=== PATIENT | female | born 1980 | race Caucasian/White ===

== ENCOUNTER 2016-04-12 04:16 | Emergency (ER) | payer OTHER ==
[~2016-04-12] VITALS: Ht 160 cm; Wt 88.0 kg
[2016-04-12 04:19] VITALS: BP 129/76; PULSE 86; RESP 16; TEMP 97.6; O2SAT 99
[2016-04-12] MEDS ORDERED: AMOX875T PO (04:35)
--- NOTE | 2016-04-12 04:38 | PD ---
HPI Chief Complaint: Cold / Flu Symptoms Time Seen by Provider: 04:28 Travel History International Travel<30 days: No Contact w/Intl Traveler<30days: No Traveled to known affect area: No History of Present Illness HPI 35-year-old female who is currently 18 weeks presents for evaluation. Since yesterday she has had sinus pressure, congestion, sneezing, bilateral ear pressure and a sore throat. She has been using [id number] Tylenol for symptom relief. No fevers, chills, rash, recent travel. Her partner has similar symptoms. She has no other complaints at this time. PFSH Past Medical History Blood Disorders: No Cancer: No Cardiovascular Problems: No Diminished Hearing: No Endocrine: No Gastrointestinal Disorders: No Genitourinary: No Immune Disorder: No Musculoskeletal: No Neurologic: No Psychiatric: No Reproductive: No Respiratory: No Immunizations Current: Yes Tetanus Vaccination: Unknown Influenza Vaccination: Yes ?: LMP: 18 WEEKS Past Surgical History Abdominal Surgery: No AICD: No Arteriovenous Shunt: No Cardiac Surgery: No Ear Surgery: Yes (TUBES A CHILD) Endocrine Surgery: No Eye Surgery: No Gynecologic Surgery: No Insulin Pump: No Joint Replacement: No Neurologic Surgery: No Oral Surgery: Yes (WISDOM TEETH REMOVED) Pacemaker: No Thoracic Surgery: No Social History Alcohol Use: No Tobacco Use: Yes (patient states that she quit for her .) Substance Use: No Allergies-Medications (Allergen,Severity, Reaction): Coded Allergies: No Known Allergies (Verified , 04/12/16) Reported Meds & Prescriptions Reported Meds & Active Scripts Active Amoxicillin 875 Mg Tab 875 Mg PO BID 10 Days Review of Systems Except as stated in HPI: all other systems reviewed are Neg Physical Exam Narrative GENERAL: Well-developed well-nourished female in no acute distress SKIN: Warm and dry. HEAD: Atraumatic. Normocephalic. EYES: Pupils equal and round. No scleral icterus. No injection or drainage. ENT: No nasal bleeding or discharge. Mucous membranes pink and moist. Some discomfort to palpation over the maxillary sinuses. Tympanic membranes clear bilaterally. No oral pharyngeal erythema or exudate. NECK: Trachea midline. No JVD. No lymphadenopathy CARDIOVASCULAR: Regular rate and rhythm. No murmur appreciated. RESPIRATORY: No accessory muscle use. Clear to auscultation. Breath sounds equal bilaterally. Data Data Last Documented VS Vital Signs Date Time Temp Pulse Resp B/P Pulse Ox O2 Delivery O2 Flow Rate FiO2 04/12/16 04:19 97.6 86 16 129/76 99 Orders Loratadine (Claritin) (04/12/16 04:45) MDM Medical Decision Making Medical Screen Exam Complete: Yes Emergency Medical Condition: Yes Medical Record Reviewed: Yes Differential Diagnosis Sinusitis, allergic rhinitis, influenza, otitis media, eustachian tube dysfunction, pharyngitis Narrative Course 35-year-old female who is 18 weeks presents with 2 day history of sinus pressure, ear discomfort, congestion and sneezing. History and examination are consistent with sinusitis, viral versus bacterial. Plan is to treat the patient with [id number] a 20 antihistamines which are category B, the patient will be discharged with a prescription for amoxicillin which is category B. Diagnosis Primary Impression: Sinusitis Qualified Code: J32.9 - Sinusitis, unspecified chronicity, unspecified location Departure Forms: Tests/Procedures, Work Release Enter return to work date: Apr 14, 2016 Additional Instructions: Medication as prescribed. Use [id number] Claritin for sneezing. Stay well hydrated and well-nourished. Follow-up with primary care physician as needed. Med/Other Pt SpecificInfo: Prescription(s) given Scripts Amoxicillin 875 Mg [id number] Mg PO BID 10 Days Ref 0 Prov:Flaquita Arenas MD 04/12/16 Disposition: 01 DISCHARGE HOME Condition: Stable Alessandro Arevalo Apr 12, 2016 04:38
[2016-04-12] MEDS ORDERED: LORATADINE 10 MG TAB PO ONE (04:45)
== END 2016-04-12 04:56 | disposition home or self-care (01) ==
LOC: NEPB 04:16
DX: O26.892 Other specified pregnancy related conditions, second trimester (principal); J32.9 Chronic sinusitis, unspecified; J02.9 Acute pharyngitis, unspecified
CPT/HCPCS: 99283

== ENCOUNTER → 2016-06-22 | Outpatient (CLI) | payer OTHER ==
[~2016-06-22] MED LIST: AMOX875T PO; IBUP-232 PO; OXYC1TAB63 PO
== END ==
LOC: CLAB 09:46
PROVIDERS: ATTEND Obstetrics & Gynecology
DX: Z34.93 Encounter for supervision of normal pregnancy, unspecified, third trimester (principal); Z3A.28 28 weeks gestation of pregnancy; Z67.31 Type AB blood, Rh negative
CPT/HCPCS: 36415; 86850; 86900; 86901; 90384; 96372; J2790

== ENCOUNTER 2016-08-24 22:14 | Emergency (ER) | payer OTHER ==
[~2016-08-24 22:14] MED LIST changes: -IBUP-232 PO; -OXYC1TAB63 PO
[2016-08-24 23:29] LABS: BLOOD, URINE NEG (NEG); COMMENT (UR) CULT NOT INDICATED; CULTURE IF INDICATED CULT NOT INDICATED; GLUCOSE,URINE NEG (NEG); KETONE, URINE NEG (NEG); MUCUS URINE FEW /lpf (OCC); NITRITE,URINE NEG (NEG); SQUAMOUS EPITHELIAL CELL URINE 2 /hpf (0-5); URINE COLOR YELLOW (YELLW/STRAW)
--- NOTE | 2016-08-24 23:31 | PD ---
HPI Chief Complaint swelling Date Seen: August 24, 2016 Travel History International Travel<30 Days: No Contact w/Intl Traveler<30Days: No Known Affected Area: No History of Present Illness HPI This is a 35y/o at 37w3d who presented to the [facility] with reports of increased swelling in her left ankle. Pt recently had bilateral LE dopplers due to concerns of lower extremity edema, per patient studies were negative. She reports some contractions today, about "couple hours" apart. No vaginal bleeding or leakage of fluid with reports of active movements. care with Dr. Saenz, records not available for review, care complicated by: 1. recent edema Para: 0 : 1 History Past Medical History Medical History: Denies Significant Hx Past Surgical History Narrative Surgical [place] teeth extraction as a child Family History Family History: Negative Social History Alcohol Use: No Tobacco Use: No Substance Abuse: No Allergies-Medications (Allergen,Severity, Reaction): Coded Allergies: No Known Allergies (Verified , 04/12/16) Home Meds Active Scripts Amoxicillin 875 Mg [id number] Mg PO BID 10 Days Ref 0 Prov:Flaquita Arenas MD 04/12/16 Review of Systems Except as stated in HPI: all other systems reviewed are Neg Physical Exam Narrative GENERAL: Well-nourished, well-developed patient. SKIN: Warm and dry. HEAD: Normocephalic and atraumatic. EYES: No scleral icterus. No injection or drainage. ENT: No nasal drainage noted. Mucous membranes pink. Airway patent. NECK: Supple, trachea midline. No JVD. CARDIOVASCULAR: Regular rate and rhythm without murmurs, gallops, or rubs. RESPIRATORY: Breath sounds equal bilaterally. No accessory muscle use. BREASTS: Bilateral exam showed no masses , no retractions, no nipple discharge. ABDOMEN/GI: Abdomen soft, non-tender, bowel sounds present, no rebound, no guarding Gravid to 38 weeks size GENITOURINARY: External Genitalia: intact and normal in appearance Cervix: pt declined, no contractions Contractions: none FHT's: Category: 1 EXTREMITIES: No cyanosis or 2+ edema, negative Melani's sign BACK: Nontender without obvious deformity. No CVA tenderness. NEUROLOGICAL: Awake and alert. Motor and sensory grossly within normal limits. Five out of 5 muscle strength in all muscle groups. Normal speech. Data Data Vital Signs Reviewed: Yes Orders Vital Signs (Adult) .ON ADMISSION (08/24/16 23:22) ^ Labor Status (08/24/16 23:22) Urinalysis - C+S If Indicated (08/24/16 23:22) Labs U/a trace protein MDM Interpretation(s) 35y/o at 37w3d who presents for evaluation of lower extremity swelling. -negative Homans' signs, negative recent LE doppler -reassuring status -no evidence of labor -u/a trace protein Plan -D/c home -f/u with Dr. Saenz on Sunday as scheduled Disposition: DISCHARGE HOME Patient Instructions: General Instructions, Early Labor Signs (ED) Additional Instructions: DRINK PLENTY OF WATER DURING DAY, RETURN IF LEAKING FLUID, VAGINAL BLEEDING, STRONG CONTRACTIONS OR DECREASE IN BABY MOVING. FOLLOW UP WITH YOUR OB DOCTOR IN AM AND KEEP ALL UPCOMING OB APPTS. Departure Forms: Tests/Procedures nAastasia Lemon MD August 24, 2016 23:31
[2016-08-24 23:39] VITALS: BP 124/70; PULSE 86
== END 2016-08-25 01:00 | disposition home or self-care (01) ==
LOC: HOBED 22:14
DX: O12.23 Gestational edema with proteinuria, third trimester (principal); Z3A.37 37 weeks gestation of pregnancy
CPT/HCPCS: 81001; 99284

== ENCOUNTER 2016-08-28 22:34 | Emergency (ER) | payer OTHER ==
--- NOTE | 2016-08-28 22:56 | PD ---
HPI Chief Complaint Contractions Date Seen: August 28, 2016 Time Seen: 22:53 Travel History International Travel<30 Days: No Contact w/Intl Traveler<30Days: No Known Affected Area: No History of Present Illness HPI 35-year-old who is at 38 weeks gestation comes in complaining of contractions. Patient was seen in the office today with a cervical exam that was 1 cm. Complains of contractions intermittently through the day but more regularly in the past hour, she had a bit of brown discharge this evening. Group B strep is negative and denies any complications Para: 0 : 1 History Past Medical History Medical History: Denies Significant Hx Past Surgical History Narrative Surgical [place] teeth LEEP Social History Alcohol Use: No Tobacco Use: No Substance Abuse: No Allergies-Medications (Allergen,Severity, Reaction): Coded Allergies: No Known Allergies (Verified , 04/12/16) Home Meds Active Scripts Amoxicillin 875 Mg [id number] Mg PO BID 10 Days Ref 0 Prov:Flaquita Arenas MD 04/12/16 Review of Systems Except as stated in HPI: all other systems reviewed are Neg Physical Exam Narrative GENERAL: Well-nourished, well-developed patient. SKIN: Warm and dry. HEAD: Normocephalic and atraumatic. EYES: No scleral icterus. No injection or drainage. ENT: No nasal drainage noted. Mucous membranes pink. Airway patent. NECK: Supple, trachea midline. No JVD. CARDIOVASCULAR: Regular rate and rhythm without murmurs, gallops, or rubs. RESPIRATORY: Breath sounds equal bilaterally. No accessory muscle use. BREASTS: Bilateral exam showed no masses , no retractions, no nipple discharge. ABDOMEN/GI: Abdomen soft, non-tender, bowel sounds present, no rebound, no guarding Gravid to [-40] weeks size Fundal Height: [-] GENITOURINARY: External Genitalia: intact and normal in appearance BUS glands: [-Normal] Cervix: [-1] Dilatation: [1 ] Effacement: [-50] Station: [--3] Presentation: [-Vertex] Membranes: [intact] Uterine Contractions: [-Irregular] FHT's: Category: [-1] Baseline: [-1:30] Reactive: [mod-] Variability: [-mod] Decels: [-Absent] EXTREMITIES: No cyanosis or edema. BACK: Nontender without obvious deformity. No CVA tenderness. NEUROLOGICAL: Awake and alert. Motor and sensory grossly within normal limits. Five out of 5 muscle strength in all muscle groups. Normal speech. Cervix is unchanged after re-examine at 12:04am Data Data Vital Signs Reviewed: Yes MDM Plan 35yo at 38 weeks gestation False labor Labor precautions given Diagnosis Diagnosis: Primary Impression: 38 weeks gestation of Additional Impression: False labor after 37 completed weeks of gestation Disposition: 01 DISCHARGE HOME Madalyn Henry MD August 28, 2016 22:56
== END 2016-08-29 00:07 | disposition home or self-care (01) ==
LOC: HOBED 22:34
DX: O47.1 False labor at or after 37 completed weeks of gestation (principal); Z3A.38 38 weeks gestation of pregnancy
CPT/HCPCS: 99284

== ENCOUNTER 2016-09-01 22:15 | Inpatient (IN) | payer OTHER ==
[~2016-09-01] VITALS: Ht 160 cm; Wt 102.1 kg
[2016-09-01] MEDS ORDERED: LACTATED RINGER'S 1000 ML INJ 1,000 ML IV PRN (23:13)
[2016-09-01] MEDS ORDERED: LACTATED RINGER'S 1000 ML INJ 1,000 ML IV SCH (23:13)
--- NOTE | 2016-09-01 23:13 | PD ---
HPI Chief Complaint contractions Date Seen: September 01, 2016 Travel History International Travel<30 Days: No Contact w/Intl Traveler<30Days: No Known Affected Area: No History of Present Illness HPI 35y/o at 38w4d who presents to the [facility] with reports of leakage of clear fluid at 10:30p after which she has had increase in the intensity and frequency of her contractions. She denies vaginal bleeding. care with Dr. Saenz, no records available for review, complicated by : 1. recent edema with negative dopplers Para: 0 : 1 History Past Medical History Medical History: Denies Significant Hx Past Surgical History Narrative Surgical H/o LEEP 2006 h/o wisdom teeth extraction Family History Family History: Negative Social History Alcohol Use: No Tobacco Use: No Substance Abuse: No Allergies-Medications (Allergen,Severity, Reaction): Coded Allergies: No Known Allergies (Verified , 04/12/16) Home Meds Active Scripts Amoxicillin 875 Mg [id number] Mg PO BID 10 Days Ref 0 Prov:Flaquita Arenas MD 04/12/16 Review of Systems Except as stated in HPI: all other systems reviewed are Neg Physical Exam Narrative GENERAL: Well-nourished, well-developed patient. SKIN: Warm and dry. HEAD: Normocephalic and atraumatic. EYES: No scleral icterus. No injection or drainage. ENT: No nasal drainage noted. Mucous membranes pink. Airway patent. NECK: Supple, trachea midline. No JVD. CARDIOVASCULAR: Regular rate and rhythm without murmurs, gallops, or rubs. RESPIRATORY: Breath sounds equal bilaterally. No accessory muscle use. BREASTS: Bilateral exam showed no masses , no retractions, no nipple discharge. ABDOMEN/GI: Abdomen soft, non-tender, bowel sounds present, no rebound, no guarding Gravid to 38 weeks size GENITOURINARY: External Genitalia: intact and normal in appearance Cervix: 1-2/50/-1 Presentation: vertex on exam Membranes: SROM on +amnisure Uterine Contractions: 5-6 minutes apart FHT's: Category: 1 EXTREMITIES: No cyanosis or edema. BACK: Nontender without obvious deformity. No CVA tenderness. NEUROLOGICAL: Awake and alert. Motor and sensory grossly within normal limits. Five out of 5 muscle strength in all muscle groups. Normal speech. Data Data Vital Signs Reviewed: Yes Orders Ob (2e) Additional Admit Info (09/01/16 22:58) MDM Medical Record Reviewed: No Interpretation(s) 35y/o at 38w4d with SROM at 10:30p in early labor. -reassuring status -GBS neg Plan -Admit for delivery -Dr. Mitchell aware of admission, will attempt to get records -IV fentanyl as desired -continue monitoring for now, consider cervical ripening if contractions don't increase in frequency Diagnosis Diagnosis: Primary Impression: 38 weeks gestation of Anastasia Lemon MD September 01, 2016 23:13
[2016-09-01] MEDS ORDERED: LIDOCAINE HCL 1% 50 ML VIAL I-DERMAL PRN (23:15)
[2016-09-01] MEDS ORDERED: MINERAL OIL 10 ML VIAL TOPICAL PRN (23:15)
[2016-09-01] MEDS ORDERED: CITRIC ACID-SODIUM CITRATE LIQ 30 ML UDC PO SCH (23:15)
[2016-09-01] MEDS ORDERED: SODIUM CHLORID 0.9% 500 ML INJ 500 ML IV PRN (23:15)
[2016-09-01] MEDS ORDERED: LIDOCAINE HCL 1% 50 ML VIAL INFIL PRN (23:15)
[2016-09-01] MEDS ORDERED: OXYTOCIN 30 UNITS-500ML PREMIX 500 ML IV ONE (23:15)
[2016-09-01] MEDS ORDERED: SODIUM CHLOR 0.9% 1000 ML INJ 1,000 ML IV PRN (23:33)
[2016-09-02] VITALS (97 sets, daily range): BP systolic 84–154; BP diastolic 49–91; PULSE 67–214; RESP 16–20; TEMP 97.4–98.9; O2SAT 97–100
[2016-09-02 00:05] LABS: BACTERIA, URINE MOD /hpf; BLOOD, URINE NEG (NEG); COMMENT (UR) CULTURE INDICATED; CULTURE IF INDICATED CULTURE INDICATED; GLUCOSE,URINE NEG (NEG); HYALINE CAST, URINE 1 /lpf (RARE); KETONE, URINE NEG (NEG); MUCUS URINE FEW /lpf (OCC); NITRITE,URINE NEG (NEG); PH, URINE 6.5 (5.0-8.5); RENAL EPITHELIAL CELLS <1 /hpf; SQUAMOUS EPITHELIAL CELL URINE 22 /hpf (0-5); TRANSITIONAL EPI CELLS, URINE <1 /hpf; URINE COLOR YELLOW (YELLW/STRAW)
[2016-09-02 00:05] LABS: AUTOMATED NEUTROPHIL # 10.3 TH/MM3 (1.8-7.7); BASOPHIL # 0.1 TH/MM3 (0-0.2); BASOPHIL % 0.4 % (0.0-2.0); EOSINOPHIL # 0.1 TH/MM3 (0-0.4); EOSINOPHIL % 0.6 % (0.0-4.0); HEMATOCRIT 38.5 % (35.0-46.0); HEMO FLAGS DIFF FINAL; LYMPH % 21.6 % (9.0-44.0); LYMPHOCYTE # 3.2 TH/MM3 (1.0-4.8); MEAN CELL VOLUME 82.3 FL (80.0-100.0); MEAN CORPUSCULAR HEMOGLOBIN 29.4 PG (27.0-34.0); MEAN CORPUSCULAR HGB CONC 35.7 % (32.0-36.0); MONO % 8.5 % (0.0-8.0); NEUT % 68.9 % (16.0-70.0); PLATELET COUNT 307 TH/MM3 (150-450); RED BLOOD COUNT 4.68 MIL/MM3 (4.00-5.30); WHITE BLOOD COUNT 14.9 TH/MM3 (4.0-11.0)
[2016-09-02] MEDS ORDERED: OXYTOCIN 30 UNITS/NS 500ML PREMIX IV SCH (06:00)
--- NOTE | 2016-09-02 09:26 | PD.LABORPN ---
Subjective Subjective pt mookie irregularly, SROM last night, now on Pitocin, GBS neg Objective Vital Signs Vital Signs Date Time Temp Pulse Resp B/P Pulse Ox O2 Delivery O2 Flow Rate FiO2 09/02/16 09:00 76 118/59 09/02/16 08:30 84 125/78 09/02/16 08:00 74 133/69 09/02/16 07:31 74 143/76 09/02/16 07:30 20 09/02/16 07:23 98.2 09/02/16 07:21 81 136/90 09/02/16 06:26 18 09/02/16 06:21 77 135/89 09/02/16 05:11 97.6 18 09/02/16 05:02 76 136/83 Objective Pelvic Exam: Cervix: [-] Dilatation: [-] 1-2 Effacement: [-] 50% Station: [-] -1 Presentation: [-] vtx Membranes: [intact or ruptured] srom Uterine Contractions: [-] irreg FHT's: Category: [-] 1 Baseline: [-] 120-130 Reactive: [-] R Variability: [-] good Decels: [-] no Assessment/Plan Problem List: (1) 38 weeks gestation of Assessment and Plan IUP at 38 5/7 wks, SROM, pitocin nov, GBS neg f/u labor progress, analgesia prn anticipate Tanisha Mitchell MD September 02, 2016 09:26
[2016-09-02] MEDS ORDERED: fentaNYL 2MCG-BUPIV 0.125% INJ 100 ML ONE (10:08)
[2016-09-02] MEDS ORDERED: ePHEDrine/NS 25 MG/5 ML SYR ONE (10:08)
[2016-09-02] MEDS ORDERED: ePHEDrine/NS 25 MG/5 ML SYR IV PRN (11:15)
[2016-09-02] MEDS ORDERED: fentaNYL 2MCG-BUPIV 0.125% 100 ML EPIDURAL SCH (11:15)
[2016-09-02] MEDS ORDERED: DO NOT ADMINISTER ANTICOAGULANTS PRN (11:15)
[2016-09-02] MEDS ORDERED: NO SYSTEM NARCOTICS PRN (11:15)
[2016-09-02] MEDS ORDERED: LACTATED RINGER'S 1000 ML IV ONE (15:00)
[2016-09-02] MEDS ORDERED: CITRIC ACID-SODIUM CITRATE LIQ 30 ML UDC PO SCH (15:00)
[2016-09-02] MEDS ORDERED: ceFAZolin 2 GM PREMIX 50 ML IV SCH (15:00)
[2016-09-02] MEDS ORDERED: LACTATED RINGER'S 1000 ML IV SCH (15:30)
[2016-09-02] MEDS ORDERED: OXYTOCIN 10 UNIT/ML AMP ONE (15:41)
[2016-09-02] MEDS ORDERED: ZOLPIDEM TARTRATE 5 MG TAB PO PRN (16:15)
[2016-09-02] MEDS ORDERED: SIMETHICONE 80 MG CHEWABLE TAB PO PRN (16:15)
[2016-09-02] MEDS ORDERED: OXYTOCIN 30 UNITS-500ML PREMIX 500 ML IV ONE (16:15)
[2016-09-02] MEDS ORDERED: ONDANSETRON HCL 4 MG/2 ML VIAL IV PUSH PRN (16:15)
[2016-09-02] MEDS ORDERED: SODIUM CHLORIDE 0.9% FLUSH 10 ML FLUSH IV FLUSH PRN (16:15)
[2016-09-02] MEDS ORDERED: MORPHINE SULFATE PF 5 MG/10 ML VIAL ONE (16:21)
--- NOTE | 2016-09-02 16:37 | MP ---
cc: KRUNAL SLOAN DATE OF SURGERY 09/02/16 PREOPERATIVE DIAGNOSIS Intrauterine at term, failure to progress. POSTOPERATIVE DIAGNOSIS Intrauterine at term, failure to progress. PROCEDURE Primary lower segment transverse section via Pfannenstiel skin incision. SURGEON Stephen Sen NUTRITION COORDINATOR Dr. Kemp FLUIDS 800 mL crystalloid ESTIMATED BLOOD LOSS 600 mL URINE OUTPUT 150 mL clear yellow at the end of the procedure. FINDINGS A live male was delivered, Apgars 8 at 1 minutes and 9 at 5 minutes. weight was 7 pounds 1 ounce PROCEDURE IN DETAIL The patient was taken to the operating room where epidural anesthesia was found to be adequate. She was then prepped and draped in the normal sterile fashion in the dorsal supine position with a leftward tilt. A Pfannenstiel skin incision was made with a scalpel and carried down to the underlying layer of fascia. The fascia was nicked in the midline and the incision was extended laterally with curved Kohler scissors. Attention was turned to the inferior aspect of the incision which was grasped with Isaura clamps, elevated and the rectus muscles dissected off sharply. Attention was turned to the superior aspect of the incision which was grasped with Isaura clamps, elevated and the rectus muscles dissected off sharply. The rectus muscles were in the midline. The peritoneum was identified, grasped between two Lou clamps, elevated and entered sharply with Metzenbaum scissors. This incision was extended superiorly and inferiorly with good visualization of the bladder. The bladder blade was inserted. The vesicouterine peritoneum was identified, grasped with pickups and entered sharply with Metzenbaum scissors. This incision was extended laterally and the bladder flap created digitally. The lower uterine segment was then incised with a scalpel and the incision was extended laterally with bandage scissors. The vertex was then delivered. A nuchal cord was reduced. The oral and nasopharynx were bulb suctioned with a syringe. The shoulders were delivered atraumatically. The cord was clamped x2 and cut. The was handed off to the waiting nurse. Placenta was delivered manually. The uterus was cleared of all clots and debris. The uterine incision was repaired in two layers with 1-0 Vicryl. Hemostasis was assured. The gutters were cleared of all clots and debris. The fascia was repaired in a running fashion with 0 Vicryl. The skin was closed with miguelina. Pressure dressing was applied. Sponge, lap, needle and instrument counts were correct x3. The patient was transferred to recovery room in stable condition. MD FERMÍN Bond/ /4:15 PM /4:32 PM
[2016-09-02] MEDS ORDERED: METOCLOPRAMIDE HCL 10 MG/2 ML VIAL IV ONE (16:43)
[2016-09-02] MEDS ORDERED: ONDANSETRON HCL 4 MG/2 ML VIAL IV PUSH ONE (16:43)
[2016-09-02] MEDS ORDERED: DEXAMETHASONE SOD PHOS 4 MG/ML VIAL IV PUSH ONE (16:43)
[2016-09-02] MEDS ORDERED: MIDAZOLAM HCL 2 MG/2 ML VIAL IV PUSH ONE (16:43)
[2016-09-02] MEDS ORDERED: ACETAMINOPHEN 1000 MG/100 ML VIAL IV ONE ×2 (16:56→17:00)
[2016-09-02] MEDS ORDERED: EPIDURAL-NO SYSTEMIC NARCOTICS PRN (19:15)
[2016-09-02] MEDS ORDERED: EPIDURAL-NALOXONE HCL 0.4 MG/ML AMP IV PRN (19:15)
[2016-09-02] MEDS ORDERED: EPIDURAL-DIPHENHYDRAMINE HCL 50 MG/ML VIAL IV PUSH PRN (19:15)
[2016-09-02] MEDS ORDERED: EPIDURAL-DO NOT ADMINISTER ANTICOAGULANTS PRN (19:15)
[2016-09-02] MEDS ORDERED: EPIDURAL-DIPHENHYDRAMINE HCL 50 MG CAP PO PRN (19:15)
[2016-09-02] MEDS ORDERED: SODIUM CHLORIDE 0.9% FLUSH 10 ML FLUSH IV FLUSH SCH (21:00)
[2016-09-02] MEDS: IBUPROFEN 600 MG TAB PO PRN (21:06)
[2016-09-02] MEDS ORDERED: LACTATED RINGER'S 1000 ML INJ 1,000 ML IV SCH (21:15)
[2016-09-03] MEDS: DOCUSATE SODIUM 50 MG/SENNA 8.6 MG TAB PO PRN (00:37)
[2016-09-03] MEDS: oxyCODONE/ACETAMINOPHEN 5 MG/325 MG TAB PO PRN ×6 (00:37→23:00)
[2016-09-03] MEDS ORDERED: OXYTOCIN 30 UNITS-500ML PREMIX 500 ML IV PRN (02:15)
[2016-09-03 04:58] LABS: BASOPHIL % 0.2 % (0.0-2.0); HEMATOCRIT 31.6 % (35.0-46.0); HEMO FLAGS DIFF FINAL; LYMPH % 15.3 % (9.0-44.0); LYMPHOCYTE # 2.2 TH/MM3 (1.0-4.8); MEAN CELL VOLUME 83.1 FL (80.0-100.0); MEAN CORPUSCULAR HGB CONC 34.9 % (32.0-36.0); MONO % 8.8 % (0.0-8.0); NEUT % 75.7 % (16.0-70.0); PLATELET COUNT 256 TH/MM3 (150-450); RED CELL DISTRIBUTION WIDTH 14.2 % (11.6-17.2); WHITE BLOOD COUNT 14.6 TH/MM3 (4.0-11.0)
[2016-09-03] MEDS: IBUPROFEN 600 MG TAB PO PRN ×3 (05:14→19:04)
--- NOTE | 2016-09-03 10:02 | HHI.OB ---
Subjective Post Operative Day: 1 Remarks no N/V, hall out, urinating well Objective Vitals/I&O Vital Signs Date Time Temp Pulse Resp B/P Pulse Ox O2 Delivery O2 Flow Rate FiO2 09/02/16 18:18 98.8 74 18 123/67 09/02/16 17:45 79 20 126/60 09/02/16 17:45 98.6 98 09/02/16 17:30 78 16 97 09/02/16 17:30 119/64 09/02/16 17:15 98 09/02/16 17:15 72 16 119/58 09/02/16 16:45 81 18 99 09/02/16 16:45 117/57 09/02/16 16:24 97.8 18 99 09/02/16 16:23 86 09/02/16 16:23 105/53 09/02/16 15:01 99 105/70 09/02/16 15:00 98.4 09/02/16 14:50 100 09/02/16 14:50 74 09/02/16 14:45 76 140/76 09/02/16 14:45 80 09/02/16 14:45 100 09/02/16 14:40 78 09/02/16 14:40 98 09/02/16 14:35 98 09/02/16 14:35 78 09/02/16 14:30 85 09/02/16 14:30 100 09/02/16 14:30 84 137/81 09/02/16 14:20 69 09/02/16 14:15 71 09/02/16 14:15 68 120/65 09/02/16 14:10 69 09/02/16 14:05 71 09/02/16 14:01 75 123/72 09/02/16 14:00 98.9 09/02/16 14:00 82 09/02/16 13:56 18 09/02/16 13:55 69 09/02/16 13:50 71 09/02/16 13:46 68 104/60 09/02/16 13:45 70 09/02/16 13:40 81 09/02/16 13:39 214 110/60 09/02/16 13:35 75 09/02/16 13:31 82 84/50 09/02/16 13:30 74 09/02/16 13:25 68 09/02/16 13:20 79 09/02/16 13:15 92 09/02/16 13:15 79 111/68 09/02/16 13:10 89 09/02/16 13:05 72 09/02/16 13:00 71 107/54 09/02/16 13:00 67 09/02/16 12:50 82 09/02/16 12:48 76 112/61 09/02/16 12:46 87 09/02/16 12:45 84 09/02/16 12:40 74 09/02/16 12:35 83 09/02/16 12:30 96 112/90 09/02/16 12:30 149 09/02/16 12:25 75 09/02/16 12:20 84 09/02/16 12:16 124 105/49 09/02/16 12:15 79 09/02/16 12:10 90 09/02/16 12:09 77 101/52 09/02/16 12:06 77 09/02/16 12:05 80 09/02/16 12:01 107 126/85 09/02/16 12:00 74 09/02/16 11:55 77 107/70 09/02/16 11:55 79 09/02/16 11:50 70 09/02/16 11:50 70 117/68 09/02/16 11:46 81 103/54 09/02/16 11:45 97.4 79 16 09/02/16 11:40 77 09/02/16 11:40 86 124/67 09/02/16 11:35 81 09/02/16 11:35 97 121/65 09/02/16 11:30 89 112/78 09/02/16 11:30 88 09/02/16 11:25 77 09/02/16 11:25 88 118/71 09/02/16 11:20 84 114/59 09/02/16 11:20 80 09/02/16 11:15 79 09/02/16 11:15 87 104/70 09/02/16 11:12 81 108/66 09/02/16 11:10 86 90/66 09/02/16 11:10 107 09/02/16 11:06 87 93/78 09/02/16 11:05 92 09/02/16 11:00 82 114/76 09/02/16 11:00 90 09/02/16 10:56 91 112/72 09/02/16 10:55 91 09/02/16 10:50 81 110/74 09/02/16 10:50 98 09/02/16 10:46 90 102/57 09/02/16 10:45 89 09/02/16 10:40 85 09/02/16 10:40 101 124/70 09/02/16 10:36 82 135/77 09/02/16 10:35 99 09/02/16 10:31 103 144/76 09/02/16 10:30 88 09/02/16 10:28 85 146/87 09/02/16 10:25 100 09/02/16 10:25 93 154/83 09/02/16 10:20 111 09/02/16 10:15 90 09/02/16 10:01 76 139/91 Result Diagram: 09/03/16 0400 Objective Remarks GENERAL: Well-nourished, well-developed patient. CARDIOVASCULAR: Regular rate and rhythm without murmurs, gallops, or rubs. RESPIRATORY: Breath sounds equal bilaterally. No accessory muscle use. ABDOMEN/GI: Abdomen soft, non-tender, bowel sounds present. Incision: dressing Clean, dry and intact. Fundus: Firm, non-tender at umbilicus. GENITOURINARY: Light to moderate bleeding. EXTREMITIES: No cyanosis or edema, non-tender, without signs of DVT. Medications and IVs Current Medications Medications (Trade) Dose Ordered Sig/[facility] Route Start Time Stop Time Status Last Admin (Lr 1000 ml Inj) 1,000 ml @ 100 mls/hr Q10H IV 09/02/16 21:15 09/03/16 17:14 (NS Flush) 2 ml BID IV FLUSH 09/02/16 21:00 (NS Flush) 2 ml UNSCH PRN IV FLUSH 09/02/16 16:15 (Mylicon Chew) 80 mg QID PRN PO 09/02/16 16:15 (Motrin) 600 mg Q6H PRN PO 09/02/16 16:15 09/03/16 05:14 (Percocet 5-325 Mg) 1 tab Q4H PRN PO 09/02/16 16:15 09/03/16 05:14 (Percocet 5-325 Mg) 2 tab Q4H PRN PO 09/02/16 16:15 09/03/16 00:37 (Teresa-Colace) 2 tab Q12H PRN PO 09/02/16 16:15 09/03/16 00:37 (Ambien) 5 mg HS PRN PO 09/02/16 16:15 (M-M-R Ii Inj) 0.5 ml ONCE ONCE SQ 09/03/16 16:00 09/03/16 16:01 (Boostrix Inj) 0.5 ml ONCE ONCE IM 09/03/16 16:00 09/03/16 16:01 (Zofran Inj) 4 mg Q6H PRN IV PUSH 09/02/16 16:15 Miscellaneous Information NO SYSTEMIC NARCOTICS TO BE GIVEN FO... UNSCH PRN .XX 09/02/16 19:15 09/03/16 19:14 (Narcan Inj) 0.4 mg UNSCH PRN IV 09/02/16 19:15 09/03/16 19:14 (Benadryl Inj) 25 mg Q6H PRN IV PUSH 09/02/16 19:15 09/03/16 19:14 (Benadryl) 50 mg Q6H PRN PO 09/02/16 19:15 09/03/16 19:14 Miscellaneous Information ALL NURSING DEPARTMENTS UNSCH PRN .XX 09/02/16 19:15 09/03/16 19:14 Assessment/Plan Problem List: (1) 38 weeks gestation of (2) delivery delivered Assessment and Plan POD#1 doing well, pt's mother will bring circ receipt routine post op care Discharge Planning routine Attending Attestation pt seen by Tanisha Meyer MD September 03, 2016 10:02
[2016-09-03] MEDS ORDERED: DIPHTH/TETANUS/ACEL PERTUSSIS (BOOSTER) 0.5 ML VIAL/PFS IM ONE (16:00)
[2016-09-03] MEDS ORDERED: MEASLES, MUMPS, RUBELLA VACCINE 0.5 ML VIAL SQ ONE (16:00)
[2016-09-03] MEDS ORDERED: OXYC1TAB63 PO (17:55)
[2016-09-03] MEDS ORDERED: IBUP-232 PO (17:55)
--- NOTE | 2016-09-03 17:56 | HHI.DCPOC ---
Discharge Care Plan Diagnosis: (1) delivery delivered Your Health Problems Are: delivery Report Symptoms to Your Doctor -Temperate above 100.5 degrees -Redness, of incision or excessive or foul smelling drainage -Unusual pain or calf pain -Increased vaginal bleeding -Painful or difficulty urinating -Feelings of extreme sadness or anxiety after 2 weeks Goals to Promote Your Health * To prevent worsening of your condition and complications * To maintain your health at the optimal level Directions to Meet Your Goals Take your medications as prescribed Follow your dietary instruction Follow activity as directed Ensure plenty of rest for recovery Drink fluids for hydration Keep your appointments as scheduled Take your immunizations and boosters as scheduled If your symptoms worsen call your PCP, if no PCP go to Urgent Care Center or Emergency Room Smoking is Dangerous to Your Health. Avoid second hand smoke Call the 24-hour crisis hotline for domestic abuse at Adriana Saenz MD September 03, 2016 17:56
[2016-09-04] MEDS: oxyCODONE/ACETAMINOPHEN 5 MG/325 MG TAB PO PRN ×3 (03:01→11:07)
[2016-09-04] MEDS: IBUPROFEN 600 MG TAB PO PRN ×2 (03:05→11:07)
[2016-09-04 08:00] VITALS: BP 138/72; PULSE 67; RESP 16; TEMP 98.6
[2016-09-04] MEDS: DOCUSATE SODIUM 50 MG/SENNA 8.6 MG TAB PO PRN (11:07)
--- NOTE | 2016-09-04 11:27 | HHI.OB ---
Subjective Post Operative Day: 2 Remarks Doing well. min pain, passing flatus, ambulating, min lochia w disruptive behavior at time of delivery. Pt denies any history of violence, physical or emotional. States fob was stressed; had not slept, did not want to see surgery, his sister (pt's best barney) just moved out of town and he was stressed and acted inappropriately. Pt's mother also denies any hx of abuse. Objective Vitals/I&O Vital Signs Date Time Temp Pulse Resp B/P Pulse Ox O2 Delivery O2 Flow Rate FiO2 09/04/16 08:00 98.6 67 16 138/72 Result Diagram: 09/03/16 0400 Objective Remarks GENERAL: Well-nourished, well-developed patient. CARDIOVASCULAR: Regular rate and rhythm without murmurs, gallops, or rubs. RESPIRATORY: Breath sounds equal bilaterally. No accessory muscle use. ABDOMEN/GI: Abdomen soft, non-tender, bowel sounds present. Incision: Clean, dry and intact. Fundus: Firm, non-tender at umbilicus. GENITOURINARY: Light to moderate bleeding. EXTREMITIES: No cyanosis or edema, non-tender, without signs of DVT. Medications and IVs Current Medications Medications (Trade) Dose Ordered Sig/[facility] Route Start Time Stop Time Status Last Admin (NS Flush) 2 ml BID IV FLUSH 09/02/16 21:00 (NS Flush) 2 ml UNSCH PRN IV FLUSH 09/02/16 16:15 (Mylicon Chew) 80 mg QID PRN PO 09/02/16 16:15 (Motrin) 600 mg Q6H PRN PO 09/02/16 16:15 09/04/16 11:07 (Percocet 5-325 Mg) 1 tab Q4H PRN PO 09/02/16 16:15 09/03/16 14:49 (Percocet 5-325 Mg) 2 tab Q4H PRN PO 09/02/16 16:15 09/04/16 11:07 (Teresa-Colace) 2 tab Q12H PRN PO 09/02/16 16:15 09/04/16 11:07 (Ambien) 5 mg HS PRN PO 09/02/16 16:15 (Zofran Inj) 4 mg Q6H PRN IV PUSH 09/02/16 16:15 Assessment/Plan Problem List: (1) 38 weeks gestation of (2) delivery delivered Assessment and Plan POD#2 doing well, Discussed baby has right hydrocele noted on exam, also twisted raphae. Discussed deferring circ until seen by accounting specialist and hydrocele resolved, r/o any inguinal hernia or other pathology. routine post op care Discharge Planning routine, today Adriana Saenz MD September 04, 2016 11:27
== END 2016-09-04 15:05 | disposition home or self-care (01) | DRG 766 ==
LOC: HOBED 22:15 → H2EB 23:01 → H1EA 09-02 18:06
PROVIDERS: ADMIT Obstetrics & Gynecology; ATTEND Obstetrics & Gynecology
PROC: 10D00Z1 Extraction of Products of Conception, Low, Open Approach (ICD-10-PCS; principal; 2016-09-01)
DX: O62.2 Other uterine inertia (principal); O32.4XX0 Maternal care for high head at term, not applicable or unspecified; Z37.0 Single live birth; Z3A.38 38 weeks gestation of pregnancy
CPT/HCPCS: 81001; 84112; 85025; 85461; 86850; 86900; 86901; 87086; 90384; 90715; 99285; J0131; J1100; J2250; J2274; J2405; J2590; J2765; J2790; J3010; J7120